=== PATIENT | male | born 1945 | race Caucasian/White ===

== ENCOUNTER 2017-07-22 00:05 | Emergency (ER) | END 2017-07-22 07:57 | disposition short-term general hospital (02) ==

== ENCOUNTER 2017-08-06 08:25 | Emergency (ER) | END 2017-08-06 18:24 | disposition short-term general hospital (02) ==

== ENCOUNTER 2017-08-21 20:00 | Inpatient (IN) | END 2017-08-23 17:37 | disposition EXP | DRG 871 ==